=== PATIENT | male | born 1995 | race Caucasian/White ===

== ENCOUNTER 2020-10-18 20:39 | Observation (INO) | payer BC ==
[2020-10-18] MEDS ORDERED: Sodium Chloride 0.9% 1000 ML 1,000 ML IV STA (20:50)
[2020-10-18] MEDS ORDERED: TORAdol 30 mg Injection IV ONE (20:50)
[2020-10-18 21:08] LABS: Appearance CLEAR (CLEAR); Bilirubin NEGATIVE (NEGATIVE); Blood NEGATIVE Ery/ul (0-5); Glucose NEGATIVE (NEGATIVE); Ketones NEGATIVE (NEGATIVE); Leukocyte Esterase NEGATIVE (NEGATIVE); Mucus SLIGHT /HPF (NEGATIVE); Nitrite NEGATIVE (NEGATIVE); Protein,Urine Dip NEGATIVE (Negative); Specific Gravity 1.009 (1.005-1.025); Urobilinogen NEGATIVE mg/dL (0-1)
[2020-10-18 21:13] LABS: Absolute Neutrophil Ct (ANC) 4.57 (1.4-6.9); BASOPHIL % 0.6 % (0.0-0.4); Basophil (Absolute #) 0.05 (0-0.4); Eosinophil % 3.2 % (0.00-5.0); Eosinophil (Absolute #) 0.26 (0-0.5); Hematocrit 43.4 % (42-50); Hemoglobin 15.3 gm/dl (12.5-18.0); Lymphocyte (Absolute #) 2.58 (1.0-4.6); Lymphocytes % 31.5 % (24.0-44.0); Mean Cell Volume 86.1 fl (78-100); Mean Corpuscular Hemoglobin 30.4 pg (26-32); Mean Corpuscular Hgb Concent. 35.3 g/dl (32-36); Mean Platelet Volume 11.1 fl (7.5-11.0); Monocyte (Absolute #) 0.72 (0.0-1.3); Monocytes % 8.8 % (0.0-12.0); Neutrophil % 55.9 % (36.0-66.0); Platelet Count 176 K/mm3 (150-450); Red Blood Count 5.04 M/mm3 (4.1-5.6); Red Cell Distribution Width 12.6 % (11.5-14.0); White Blood Count 8.2 K/mm3 (4.0-10.5)
[2020-10-18] MEDS ORDERED: TORAdol 30 mg Injection ONE (21:17)
[2020-10-18] MEDS ORDERED: Sodium Chloride 0.9% 1000 ML 1,000 ML ONE (21:18)
[2020-10-18 21:27] LABS: ALBUMIN 4.8 g/dL (3.5-5.0); ALKALINE PHOSPHATASE 65 U/L (38-126); ANION GAP 9.9 MEQ/L (5-15); BLOOD UREA NITROGEN 16 mg/dL (9-20); CHLORIDE 101 mmol/L (98-107); Calcium 9.8 mg/dL (8.4-10.2); Carbon Dioxide 32 mmol/L (22-30); Creatinine 1 1.17 mg/dL (0.66-1.25); EST GLOMERULAR FILTRATION RATE > 60.0 ML/MIN; Glucose 116 mg/dL (74-106); LIPASE 99 U/L (23-300); Potassium 3.9 mmol/L (3.5-5.1); SGOT/AST 30 U/L (17-59); SGPT/ALT 25 U/L (0-50); SODIUM 139 mmol/L (137-145); Total Protein 7.6 g/dL (6.3-8.2)
--- NOTE | 2020-10-18 22:17 | ERPHSYRPT ---
- History of Present Illness Time Seen by Provider: 10/18/20 20:55 Historian: patient Exam Limitations: no limitations Patient Subjective Stated Complaint: pt states that he went to a quick care last . pt states that he was told he was full of gas. pt states that he is still having persistant pain to the rt side of his abd and flank. pt states that he strains with tolieting. Triage Nursing Assessment: pt ambulated into the er; pt is axo x4; c/o rt abd pain and rt flank pain; states 8/10 pain to abd and flank area; abd is flat, soft, tenderness with palpation to RUQ; hyperactive bowel sounds in all quads; states diarrhea for the past 5 days; pt states nausea but denies vomting; c/o flatulence; hypertensive Physician History: Patient is a 25-year-old male presents to our ED with complaints of right-sided flank pain. Patient has been experiencing this pain for approximately 5 days. Patient went to a quick care and they diagnosed him with gas. Patient is here today because his symptoms have progressed. Patient states the pain is worse. Patient having difficulty tolerating p.o. He is very nauseous. No trauma. No fever. No nausea or vomiting. Patient admits to loose stool. Patient is other cox healthy. He voices no other complaints or concerns at this time. Timing/Duration: today Activities at Onset: none Quality: aching Abdominal Pain Onset Location: flank Pain Radiation: no radiation Severity of Pain-Max: moderate Severity of Pain-Current: mild Modifying Factors: Improves With: nothing Associated Symptoms: diarrhea, nausea, No chest pain Previous symptoms: no prior history Allergies/Adverse Reactions: No Known Drug Allergies Allergy (Unverified 10/18/20 20:50) Home Medications: No Reportable Medications [No Reported Medications] 10/18/20 [History] Hx Tetanus, Diphtheria Vaccination/Date Given: Yes Hx Influenza Vaccination/Date Given: No Hx Pneumococcal Vaccination/Date Given: No Immunizations Up to Date: No Travel Risk - International Travel Have you traveled outside of the country in past 3 weeks: No - Coronavirus Screening Are you exhibiting any of the following symptoms?: No Close contact with a COVID-19 positive Pt in past 14-21 Days: No - Review of Systems Constitutional: No Symptoms, No Fever, No Chills Eyes: No Symptoms Ears, Nose, & Throat: No Symptoms Respiratory: No Symptoms, No Cough, No Dyspnea Cardiac: No Symptoms, No Chest Pain, No Edema, No Syncope Abdominal/Gastrointestinal: No Symptoms, No Abdominal Pain, No Nausea, No Vomiting, No Diarrhea Genitourinary Symptoms: No Symptoms, No Dysuria Musculoskeletal: No Symptoms, No Back Pain, No Neck Pain Skin: No Symptoms, No Rash Neurological: No Symptoms, No Dizziness, No Focal Weakness, No Sensory Changes Psychological: No Symptoms Endocrine: No Symptoms Hematologic/Lymphatic: No Symptoms Immunological/Allergic: No Symptoms All Other Systems: Reviewed and Negative - Past Medical History Pertinent Past Medical History: No - Past Surgical History Past Surgical History: Yes Other Surgical History: oral surgery- teeth removal - Social History Smoking Status: Never smoker Exposure to second hand smoke: No Drug Use: none Patient Lives Alone: No - Nursing Vital Signs Nursing Vital Signs: Initial Vital Signs Temperature 98.3 F 10/18/20 20:51 Pulse Rate 69 10/18/20 20:51 Respiratory Rate 16 10/18/20 20:51 Blood Pressure 157/100 10/18/20 20:51 O2 Sat by Pulse Oximetry 100 10/18/20 20:51 Pain Scale Pain Intensity 6 - Physical Exam General Appearance: no apparent distress, alert Eye Exam: PERRL/EOMI, eyes nml inspection Ears, Nose, Throat Exam: normal ENT inspection, pharynx normal, moist mucous membranes Neck Exam: normal inspection, non-tender, supple, full range of motion Respiratory Exam: normal breath sounds, lungs clear, No respiratory distress Cardiovascular Exam: regular rate/rhythm, normal heart sounds Gastrointestinal/Abdomen Exam: soft, No tenderness, No mass Back Exam: normal inspection, normal range of motion, No CVA tenderness, No vertebral tenderness Extremity Exam: normal inspection, normal range of motion, pelvis stable Neurologic Exam: alert, oriented x 3, cooperative, normal mood/affect, nml cerebellar function, sensation nml, No motor deficits Skin Exam: normal color, warm, dry SpO2 Interpretation: normal SpO2: 99 O2 Delivery: Room Air - Course Nursing assessment & vital signs reviewed: Yes - CT Exams Abdomen/Pelvis CT Interpretation: Tele-radiologist Report (No comps however massive air and fluid distended stomach rule out gastroparesis versus outlet obstruction. Normal appendix. Remaining abdomen pelvis negative.) Ordered Tests: Active Orders 24 hr Category Date Time Status IV Insertion STAT Care 10/18/20 20:50 Active NGT [Gastric Tube Insertion] STAT Care 10/18/20 22:17 Active ABDOMEN AND PELVIS W/0 CONTRAS [CT] Stat Exams 10/18/20 21:08 Taken CBC W DIFF Stat Lab 10/18/20 21:10 Completed CMP Stat Lab 10/18/20 21:10 Completed LIPASE Stat Lab 10/18/20 21:10 Completed UA W/RFX UR CULTURE Stat Lab 10/18/20 20:50 Completed Medication Summary Discontinued Medications Generic Name Dose Route Start Last Admin Trade Name Freq PRN Reason Stop Dose Admin Sodium Chloride 1,000 mls @ 999 mls/hr 10/18/20 20:50 10/18/20 21:20 Sodium Chloride 0.9% 1000 Ml IV 10/18/20 21:50 999 mls/hr .Q1H1M STA Administration Sodium Chloride Confirm 10/18/20 21:18 Sodium Chloride 0.9% 1000 Ml Administered 10/18/20 21:19 Dose 1,000 mls @ ud .ROUTE .STK-MED ONE Ketorolac Tromethamine 30 mg 10/18/20 20:50 10/18/20 21:20 Toradol 30 Mg Injection IV 10/18/20 20:51 30 mg STAT ONE Administration Ketorolac Tromethamine Confirm 10/18/20 21:17 Toradol 30 Mg Injection Administered 10/18/20 21:18 Dose 30 mg .ROUTE .STK-MED ONE Lab/Rad Data: Laboratory Result Diagrams 10/18/20 21:10 10/18/20 21:10 Laboratory Results 10/18/20 10/18/20 10/18/20 Range/Units 21:10 21:10 20:50 WBC 8.2 (4.0-10.5) K/mm3 RBC 5.04 (4.1-5.6) M/mm3 Hgb 15.3 (12.5-18.0) gm/dl Hct 43.4 (42-50) % MCV 86.1 (78-100) fl MCH 30.4 (26-32) pg MCHC 35.3 (32-36) g/dl RDW 12.6 (11.5-14.0) % Plt Count 176 (150-450) K/mm3 MPV 11.1 H (7.5-11.0) fl Gran % 55.9 (36.0-66.0) % Eos # (Auto) 0.26 (0-0.5) Absolute Lymphs (auto) 2.58 (1.0-4.6) Absolute Monos (auto) 0.72 (0.0-1.3) Lymphocytes % 31.5 (24.0-44.0) % Monocytes % 8.8 (0.0-12.0) % Eosinophils % 3.2 (0.00-5.0) % Basophils % 0.6 (0.0-0.4) % Absolute Granulocytes 4.57 (1.4-6.9) Basophils # 0.05 (0-0.4) Sodium 139 (137-145) mmol/L Potassium 3.9 (3.5-5.1) mmol/L Chloride 101 (98-107) mmol/L Carbon Dioxide 32 H (22-30) mmol/L Anion Gap 9.9 (5-15) MEQ/L BUN 16 (9-20) mg/dL Creatinine 1.17 (0.66-1.25) mg/dL Estimated GFR > 60.0 ML/MIN Glucose 116 H (74-106) mg/dL Calcium 9.8 (8.4-10.2) mg/dL Total Bilirubin 1.10 (0.2-1.3) mg/dL AST 30 (17-59) U/L ALT 25 (0-50) U/L Alkaline Phosphatase 65 (38-126) U/L Serum Total Protein 7.6 (6.3-8.2) g/dL Albumin 4.8 (3.5-5.0) g/dL Lipase 99 (23-300) U/L Urine Color STRAW (YELLOW) Urine Appearance CLEAR (CLEAR) Urine pH 9.0 (5-6) Ur Specific Mathews 1.009 (1.005-1.025) Urine Protein NEGATIVE (Negative) Urine Ketones NEGATIVE (NEGATIVE) Urine Blood NEGATIVE (0-5) Landon/ul Urine Nitrite NEGATIVE (NEGATIVE) Urine Bilirubin NEGATIVE (NEGATIVE) Urine Urobilinogen NEGATIVE (0-1) mg/dL Ur Leukocyte Esterase NEGATIVE (NEGATIVE) Urine WBC (Auto) NONE (0-5) /HPF Urine RBC (Auto) NONE (0-2) /HPF U Epithel Cells (Auto) NONE (FEW) /HPF Urine Bacteria (Auto) NONE (NEGATIVE) /HPF Urine Mucus (Auto) SLIGHT (NEGATIVE) /HPF Urine Culture Reflexed NO (NO) Urine Glucose NEGATIVE (NEGATIVE) mg/dL - Progress Progress: improved Progress Note: 10/18/20 22:32 Patient reassessed. He is well. Patient unable to tolerate p.o. in our ED. CT scan reveals a massively distended stomach. Possible gastroparesis versus gastric outlet syndrome. We will an NG tube to decompress the stomach. Case discussed with Dr. Fatima who accepts consultation. Case discussed with Dr. Mckeon accepts admission to observation. Plan of care discussed with patient. He agrees to admission to [facility] for further e valuation and treatment. Discussed with DrTaryn: Norma Mathew Will see patient in: hospital (observation) Counseled pt/family regarding: lab results, diagnosis, rad results - Departure Departure Disposition: Observation Clinical Impression: Gastric outlet obstruction, Nausea and vomiting, Abdominal pain Condition: Stable Critical Care Time: No Referrals: SHAKIRA OHARA JR [Primary Care Provider] -
[2020-10-18] MEDS ORDERED: Zofran 4 MG/2 ML VIAL IV ONE (23:03)
[2020-10-18] MEDS ORDERED: Zofran 4 MG/2 ML VIAL ONE (23:13)
[2020-10-19] MEDS ORDERED: Zofran 4 MG/2 ML VIAL IV PRN (00:02)
[2020-10-19] MEDS ORDERED: MORPHINE SULFATE 4 MG INJ IV PRN (00:02)
[2020-10-19] MEDS: Sodium Chloride 0.9% 1000 ML 1,000 ML IV SCH ×3 (00:07→12:53)
[2020-10-19 05:37] LABS: BASOPHIL % 0.2 % (0.0-0.4); Basophil (Absolute #) 0.02 (0-0.4); Eosinophil % 0.4 % (0.00-5.0); Eosinophil (Absolute #) 0.04 (0-0.5); Hematocrit 41.7 % (42-50); Hemoglobin 14.9 gm/dl (12.5-18.0); Lymphocyte (Absolute #) 1.35 (1.0-4.6); Lymphocytes % 13.5 % (24.0-44.0); Mean Cell Volume 86.3 fl (78-100); Mean Corpuscular Hemoglobin 30.8 pg (26-32); Mean Corpuscular Hgb Concent. 35.7 g/dl (32-36); Mean Platelet Volume 11.6 fl (7.5-11.0); Monocyte (Absolute #) 0.49 (0.0-1.3); Monocytes % 4.9 % (0.0-12.0); Platelet Count 183 K/mm3 (150-450); Red Blood Count 4.83 M/mm3 (4.1-5.6); Red Cell Distribution Width 12.5 % (11.5-14.0)
[2020-10-19 06:28] LABS: ALBUMIN 4.3 g/dL (3.5-5.0); ALKALINE PHOSPHATASE 63 U/L (38-126); ANION GAP 10.4 MEQ/L (5-15); BLOOD UREA NITROGEN 13 mg/dL (9-20); CHLORIDE 105 mmol/L (98-107); Calcium 9.3 mg/dL (8.4-10.2); Carbon Dioxide 28 mmol/L (22-30); Creatinine 1 1.03 mg/dL (0.66-1.25); EST GLOMERULAR FILTRATION RATE > 60.0 ML/MIN; Potassium 4.1 mmol/L (3.5-5.1); SGOT/AST 27 U/L (17-59); SGPT/ALT 22 U/L (0-50); SODIUM 139 mmol/L (137-145)
[2020-10-19 06:29] LABS: Glucose 111 mg/dL (74-106)
--- NOTE | 2020-10-19 08:44 | XRAY ---
Indication: Right flank pain 1 week. Multiple contiguous axial images obtained through the abdomen and pelvis without contrast as ordered. Comparison: None Lung bases are clear. Heart is not enlarged. Stomach is massively air and fluid distended concerning for outlet obstruction versus gastroparesis. Remaining noncontrasted bowel loops appear nonobstructed with normal appearing appendix. No free fluid/air. Incidental splenic calcified granulomas. Remaining liver, gallbladder, pancreas, spleen, adrenal glands, kidneys, ureters, bladder, and aorta appear unremarkable for noncontrast exam. Osseous structures intact. No ventral or inguinal hernias. Impression: 1. Massively air and fluid distended stomach. Rule out gastroparesis versus outlet obstruction. 2. Remaining CT abdomen/pelvis without contrast exam is negative.
--- NOTE | 2020-10-19 08:46 | XRAY ---
Indication: NG tube placement. Comparison: February 14, 2019. Portable chest demonstrates new NG tube with tip in the stomach. Remaining heart, lungs, and bony thorax normal.
[2020-10-19] MEDS ORDERED: Lactated Ringers 1,000 ML IV SCH (09:00)
--- NOTE | 2020-10-19 10:34 | PCM.HP ---
History of Present Illness - Chief Complaint Chief Complaint: Gastric outlet obstruction History of Present Illness: is a 25 year old male. presented to ER with enlarged stomach, vomiting and nausea for several days. PtTaryn apparently has a gastric outlet obstruction, by scale of stomache distension. - Review of Systems Constitutional: No Fever, No Chills Eyes: No Symptoms Ears, Nose, & Throat: No Symptoms Respiratory: No Cough, No Short Of Breath Cardiac: No Chest Pain, No Edema, No Syncope Abdominal/Gastrointestinal: Abdominal Pain, Nausea, Vomiting Genitourinary Symptoms: No Dysuria Musculoskeletal: No Back Pain, No Neck Pain Skin: No Rash Neurological: No Dizziness, No Focal Weakness, No Sensory Changes Psychological: No Symptoms Endocrine: No Symptoms Hematologic/Lymphatic: No Symptoms Immunological/Allergic: No Symptoms Medications & Allergies Home Medications: Home Medication List No Reportable Medications [No Reported Medications] 10/18/20 [History Confirmed 10/18/20] Allergies/Adverse Reactions: Allergies Allergy/AdvReac Type Severity Reaction Status Date / Time No Known Drug Allergies Allergy Unverified 10/18/20 20:50 - Past Medical History Past Medical History: No - Past Surgical History Past Surgical History: Yes Other Surgical History: oral surgery- teeth removal - Social History Smoking Status: Never smoker Exposure to second hand smoke: No Alcohol: None Drug Use: none - Physical Exam Vital Signs: Vital Signs - 24 hr Temp Pulse Resp BP Pulse Ox 10/19/20 08:00 98.5 F 91 H 16 136/79 98 10/19/20 04:14 98.1 F 86 17 136/64 99 10/19/20 01:04 98 10/19/20 00:12 98.0 F 83 18 135/73 98 10/18/20 23:31 81 143/91 96 10/18/20 22:33 99 10/18/20 21:49 67 123/83 99 10/18/20 20:51 98.3 F 69 16 157/100 100 General Appearance: no apparent distress, alert Neurologic Exam: alert, oriented x 3, cooperative, normal mood/affect, No motor deficits Eye Exam: PERRL/EOMI, eyes nml inspection Ears, Nose, Throat Exam: normal ENT inspection Neck Exam: normal inspection, non-tender, supple, full range of motion Respiratory Exam: normal breath sounds, lungs clear, No respiratory distress Cardiovascular Exam: regular rate/rhythm, normal heart sounds, normal peripheral pulses Gastrointestinal/Abdomen Exam: soft, normal bowel sounds, No tenderness, No mass Back Exam: normal inspection, No CVA tenderness, No vertebral tenderness Extremity Exam: normal inspection, normal range of motion, pelvis stable Skin Exam: normal color, warm, dry, No rash Lymphatic Exam: No adenopathy Results - Labs Lab/Micro Results: Lab Results-Last 24 Hours 10/18/20 10/18/20 10/18/20 Range/Units 20:50 21:10 21:10 WBC 8.2 (4.0-10.5) K/mm3 RBC 5.04 (4.1-5.6) M/mm3 Hgb 15.3 (12.5-18.0) gm/dl Hct 43.4 (42-50) % MCV 86.1 (78-100) fl MCH 30.4 (26-32) pg MCHC 35.3 (32-36) g/dl RDW 12.6 (11.5-14.0) % Plt Count 176 (150-450) K/mm3 MPV 11.1 H (7.5-11.0) fl Gran % 55.9 (36.0-66.0) % Eos # (Auto) 0.26 (0-0.5) Absolute Lymphs (auto) 2.58 (1.0-4.6) Absolute Monos (auto) 0.72 (0.0-1.3) Lymphocytes % 31.5 (24.0-44.0) % Monocytes % 8.8 (0.0-12.0) % Eosinophils % 3.2 (0.00-5.0) % Basophils % 0.6 (0.0-0.4) % Absolute Granulocytes 4.57 (1.4-6.9) Basophils # 0.05 (0-0.4) Sodium 139 (137-145) mmol/L Potassium 3.9 (3.5-5.1) mmol/L Chloride 101 (98-107) mmol/L Carbon Dioxide 32 H (22-30) mmol/L Anion Gap 9.9 (5-15) MEQ/L BUN 16 (9-20) mg/dL Creatinine 1.17 (0.66-1.25) mg/dL Estimated GFR > 60.0 ML/MIN Glucose 116 H (74-106) mg/dL Calcium 9.8 (8.4-10.2) mg/dL Total Bilirubin 1.10 (0.2-1.3) mg/dL AST 30 (17-59) U/L ALT 25 (0-50) U/L Alkaline Phosphatase 65 (38-126) U/L Serum Total Protein 7.6 (6.3-8.2) g/dL Albumin 4.8 (3.5-5.0) g/dL Lipase 99 (23-300) U/L Urine Color STRAW (YELLOW) Urine Appearance CLEAR (CLEAR) Urine pH 9.0 (5-6) Ur Specific Arabi 1.009 (1.005-1.025) Urine Protein NEGATIVE (Negative) Urine Ketones NEGATIVE (NEGATIVE) Urine Blood NEGATIVE (0-5) Landon/ul Urine Nitrite NEGATIVE (NEGATIVE) Urine Bilirubin NEGATIVE (NEGATIVE) Urine Urobilinogen NEGATIVE (0-1) mg/dL Ur Leukocyte Esterase NEGATIVE (NEGATIVE) Urine WBC (Auto) NONE (0-5) /HPF Urine RBC (Auto) NONE (0-2) /HPF U Epithel Cells (Auto) NONE (FEW) /HPF Urine Bacteria (Auto) NONE (NEGATIVE) /HPF Urine Mucus (Auto) SLIGHT (NEGATIVE) /HPF Urine Culture Reflexed NO (NO) Urine Glucose NEGATIVE (NEGATIVE) mg/dL 10/19/20 10/19/20 Range/Units 04:50 04:50 WBC 10.0 (4.0-10.5) K/mm3 RBC 4.83 (4.1-5.6) M/mm3 Hgb 14.9 (12.5-18.0) gm/dl Hct 41.7 L (42-50) % MCV 86.3 (78-100) fl MCH 30.8 (26-32) pg MCHC 35.7 (32-36) g/dl RDW 12.5 (11.5-14.0) % Plt Count 183 (150-450) K/mm3 MPV 11.6 H (7.5-11.0) fl Gran % 81.0 H (36.0-66.0) % Eos # (Auto) 0.04 (0-0.5) Absolute Lymphs (auto) 1.35 (1.0-4.6) Absolute Monos (auto) 0.49 (0.0-1.3) Lymphocytes % 13.5 L (24.0-44.0) % Monocytes % 4.9 (0.0-12.0) % Eosinophils % 0.4 (0.00-5.0) % Basophils % 0.2 (0.0-0.4) % Absolute Granulocytes 8.10 H (1.4-6.9) Basophils # 0.02 (0-0.4) Sodium 139 (137-145) mmol/L Potassium 4.1 (3.5-5.1) mmol/L Chloride 105 (98-107) mmol/L Carbon Dioxide 28 (22-30) mmol/L Anion Gap 10.4 (5-15) MEQ/L BUN 13 (9-20) mg/dL Creatinine 1.03 (0.66-1.25) mg/dL Estimated GFR > 60.0 ML/MIN Glucose 111 H (74-106) mg/dL Calcium 9.3 (8.4-10.2) mg/dL Total Bilirubin 1.30 (0.2-1.3) mg/dL AST 27 (17-59) U/L ALT 22 (0-50) U/L Alkaline Phosphatase 63 (38-126) U/L Serum Total Protein 7.0 (6.3-8.2) g/dL Albumin 4.3 (3.5-5.0) g/dL Lipase (23-300) U/L Urine Color (YELLOW) Urine Appearance (CLEAR) Urine pH (5-6) Ur Specific Arabi (1.005-1.025) Urine Protein (Negative) Urine Ketones (NEGATIVE) Urine Blood (0-5) Landon/ul Urine Nitrite (NEGATIVE) Urine Bilirubin (NEGATIVE) Urine Urobilinogen (0-1) mg/dL Ur Leukocyte Esterase (NEGATIVE) Urine WBC (Auto) (0-5) /HPF Urine RBC (Auto) (0-2) /HPF U Epithel Cells (Auto) (FEW) /HPF Urine Bacteria (Auto) (NEGATIVE) /HPF Urine Mucus (Auto) (NEGATIVE) /HPF Urine Culture Reflexed (NO) Urine Glucose (NEGATIVE) mg/dL - Radiology Impressions Radiology Exams & Impressions: Radiology Procedures Category Date Time Status ABDOMEN AND PELVIS W/0 CONTRAS [CT] Stat Exams 10/18/20 21:08 Completed CHEST 1 VIEW (PORTABLE) Stat Exams 10/18/20 23:00 Completed Assessment/Plan (1) Abdominal pain Current Visit: Yes Status: Acute Code(s): R10.9 - UNSPECIFIED ABDOMINAL PAIN (2) Gastric outlet obstruction Current Visit: Yes Status: Acute Assessment & Plan: EGD per surgery today to further evaluate Code(s): K31.1 - ADULT HYPERTROPHIC PYLORIC STENOSIS (3) Nausea and vomiting Current Visit: Yes Status: Acute Code(s): R11.2 - NAUSEA WITH VOMITING, UNSPECIFIED
[2020-10-19] MEDS ORDERED: Versed 2 MG/2 ML Injection ONE (11:50)
[2020-10-19] MEDS ORDERED: DIPRIVAN 200 MG/20 ML IV ONE (11:51)
--- NOTE | 2020-10-19 13:26 | CONS ---
CONSULT DATE: 10/19/2020 REASON FOR CONSULT: Nausea and vomiting. HISTORY: The patient is a 25 year-old male previously healthy with no abdominal complaints. Over the last several days he presents with abdominal distention, vomiting and nausea. He is having trouble tolerating any p.o. The patient had NG placed in the emergency department. He was admitted and suctioned and resuscitated overnight. His pain dramatically improved. He has no abdominal pain anymore. PAST MEDICAL HISTORY: None. FAMILY HISTORY: No abdominal cancer. No inflammatory bowel disease. SOCIAL HISTORY: No tobacco. Not a daily drinker. MEDICATIONS: None. ALLERGIES: NONE. REVIEW OF SYSTEMS: Chart reviewed. Twelve point review of systems is negative. PHYSICAL EXAMINATION: Vitals are normal. He is in no acute distress. HEENT: Sclera nonicteric. NECK: Symmetric, no mass. CHEST: Nonlabored respirations. HEART: Regular rate and rhythm. ABDOMEN: Nondistended, soft, nontender to palpation but he does have NG in place. EXTREMITIES: No edema. Moving all extremities. NEURO: Marc Coma Scale (GCS) 15. LAB DATA AND TESTS: CBC, BMP, hepatic function, lipase all reviewed essentially normal. UA negative. CT images reviewed. He has a markedly distended stomach concerning for possible gastric outlet obstruction. ASSESSMENT AND PLAN: This is a 25 year-old male with what appears to be a gastric outlet obstruction. His symptoms did improve with NG decompression. Discussed with him the options of EGD with risks of bleeding or perforation and he elected to proceed. Will plan on performing an EGD today. We also discussed that this may not be diagnostic and he may need additional testing.
--- NOTE | 2020-10-19 14:26 | XRAY ---
Indication: Abdomen pain, nausea, and vomiting. Possible gastric outlet obstruction on recent CT. Comparison: None Approximately 150 cc barium injected through indwelling NG tube. Barium collects in and distends the stomach. No obvious filling defect or acute ulcerations. Normal immediate gastric emptying. Duodenal cap and duodenal sweep appear normal in course and caliber. Impression: Negative limited upper GI exam. Approximately 0.7 minute fluoroscopy used. Comment: Telephone report was given to the ordering clinician Dr. Kiko Fatima at 1415 hrs. on October 19, 2020.
[2020-10-20] MEDS: Sodium Chloride 0.9% 1000 ML 1,000 ML IV SCH (00:48)
[2020-10-20 11:38] VITALS: BP 115/65; PULSE 58; O2SAT 97
== END 2020-10-20 11:35 | disposition home or self-care (01) ==
LOC: ED 20:39 → MED SURG 10-19 00:01
PROVIDERS: ADMIT Family Medicine; ATTEND Family Medicine
DX: K31.1 Adult hypertrophic pyloric stenosis (principal); R10.9 Unspecified abdominal pain; R11.2 Nausea with vomiting, unspecified; K29.70 Gastritis, unspecified, without bleeding
CPT/HCPCS: 36000; 36415; 43239; 71045; 74176; 74240; 80053; 81001; 83690; 85025; 96374; 96375; 99285; G0378; J1885; J2250; J2405; J2704